=== PATIENT | male | born 1975 | race Caucasian/White ===

== ENCOUNTER 2019-05-10 11:51 | Emergency (ER) | payer OTHER, SELFPAY ==
--- NOTE | ~2019-05-10 | US_ITS ---
EXAMINATION: US soft tissue groin LT DATE: 05/10/2019 13:09 INDICATION: Left groin mass TECHNIQUE: Multiple grayscale and Doppler ultrasound images of the left groin were obtained. COMPARISON: None FINDINGS: There is an enlarged 2.5 x 2.3 x 1.4 cm left inguinal lymph node with asymmetric cortical thickening on the deep margin of the central fatty hilum. Appears to be increased vascularity extending to the h ilum. Along the hilar side of the lymph node is a less well-defined approximately 3.5 x 1.3 cm region more hypoechoic to the surrounding fat but with increased echogenicity relative to the lymph node. T here is a smaller normal appearing 1.4 x 1.1 x 0.7 cm left inguinal lymph node. IMPRESSION: 1. Enlarged 2.5 x 2.3 x 1.4 cm left inguinal lymph node with second more ill-defined adjacent hypoech oic region which is indeterminate, possibly a second enlarged lymph node. Differential includes react mya lymph node, supportive lymph node or lymph node metastasis. Could consider either clinical follow -up or ultrasound-guided biopsy depending on clinical history and level of clinical concern. Reviewed, dictated and finalized at location A. [employer] IMPRESSION: 1. Enlarged 2.5 x 2.3 x 1.4 cm left inguinal lymph node with second more ill-de fined adjacent hypoechoic region which is indeterminate, possibly a second enla rged lymph node. Differential includes reactive lymph node, supportive lymph no de or lymph node metastasis. Could consider either clinical follow-up or ultras ound-guided biopsy depending on clinical history and level of clinical concern.
--- NOTE | ~2019-05-10 | CT_ITS ---
EXAMINATION: CT chest abdomen pelvis w con DATE: 05/10/2019 14:48 [employer] INDICATION: Testicular mass. Rule out metastases. TECHNIQUE: Computed tomography (CT) of the chest, abdomen, and pelvis was performed with 100 cc Omnip aque 350 intravenous contrast. The dose-length product was 940.47 mGy-cm. Automated exposure control and iterative reconstruction technique were employed. COMPARISON: CT dated 03/10/2016 FINDINGS: CHEST CT: Calcified granulomas right upper lobe. There are is a 6 mm fissural nodule on the right, image 59. Th ere is right hilar lymphadenopathy measuring 13 mm short axis. Calcified right hilar lymph nodes cons istent with chronic granulomatous disease. No significant pleural or pericardial effusion. ABDOMEN/PELVIS CT: The liver, pancreas, adrenal glands are unremarkable. There are calcified granulomas of the spleen. T here are multiple bilateral renal cysts, largest in the left kidney measuring 2.5 cm. Gallbladder is present. Nonobstructive bowel gas pattern. There are multiple enlarged inguinal lymph nodes, largest in the right groin measuring 2.7 x 1.3 cm. There is complex phlegmonous change posterior to this lymp h node with infiltration of the surrounding fat, suspicious for infection. Cannot exclude developing abscess. Differential diagnosis includes hematoma. Status post cholecystectomy. Mildly enlarged prost ate gland. Mild thoracic spondylosis. No acute osseous abnormality. IMPRESSION: 1. Left inguinal lymphadenopathy with adjacent phlegmonous change, suspicious for infection/celluliti s. Cannot exclude developing abscess. Differential diagnosis includes hematoma if there is a history of trauma. 2: Mild right hilar lymphadenopathy, likely reactive. 3: 6 mm fissural nodule in the right, likely benign. Recommend follow-up low dose CT in 12 months. Reviewed, dictated and finalized at location B. [employer] IMPRESSION: 1. Left inguinal lymphadenopathy with adjacent phlegmonous change, suspicious f or infection/cellulitis. Cannot exclude developing abscess. Differential diagno sis includes hematoma if there is a history of trauma. 2: Mild right hilar lymphadenopathy, likely reactive. 3: 6 mm fissural nodule in the right, likely benign. Recommend follow-up low d ose CT in 12 months.
[2019-05-10 12:01] VITALS: BP 123/89; PULSE 115; RESP 18; TEMP 37.7; O2SAT 96
--- NOTE | 2019-05-10 12:26 | ED.WOUNDLAC ---
HPI - Wound/Laceration General Chief Complaint: Wound/Laceration Stated Complaint: testicular cyst Time Seen by Provider: 05/10/19 12:16 Source: patient Mode of arrival: ambulatory Limitations: no limitations History of Present Illness HPI narrative: Pt is a 44 y/o male who presents to the ED with c/o pain to his inner lt thigh that started 2.5 weeks ago. Pt states that he was at [facility] on Thursday (6 days ago) and was told that he had a cyst and needed to see a surgeon. He was supposed to see a surgeon today and his appointment got cancelled d/t his insurance. Pt has an appointment to see a surgeon in 2 days. He states that the pain has increased in the last 2 days and the size has doubled. Pt denies fever, penile pain, testicular pain, dysuria, or hematuria. He reports a tingling sensation after urinating and pain when walking. Onset (ago): week(s) (2.5) Extremity Location: Left: thigh Associated symptoms: pain Related Data Allergies Allergy/AdvReac Type Severity Reaction Status Date / Time aspirin Allergy Intermediate Seizure Verified 05/10/19 13:29 Review of Systems Review of Systems: Narrative: CONSTITUTIONAL: Denies fever. GENITOURINARY: Denies dysuria, hematuria, penile pain, testicular pain. Reports tingling after urinating. SKIN: Reports cyst to lt inner thigh MUSCULOSKELETAL: Reports pain to inner lt thigh. All systems reviewed & are unremarkable except as noted in HPI and below PMFSH Past Medical History Medical History (Updated 05/10/19 @ 16:26 by Christianne Sood MD) Anxiety Depression Diabetes mellitus History of blood transfusion HLD (hyperlipidemia) HTN (hypertension) Migraine MRSA (methicillin resistant staph aureus) culture positive Murmur MVP (mitral valve prolapse) Myocardial infarction Seizure Surgical History Surgical History (Updated 05/10/19 @ 13:34 by Monserrat Hoffman) History of arthroscopic knee surgery right History of surgery on arm bicep repair 2014 History of total right knee replacement Hx of appendectomy Social History Social History Smoking status: Heavy tobacco smoker Alcohol intake: never Gender identity (if verbalized by the patient): Male Exam Narrative: Exam Narrative: GENERAL: Well-appearing, well-nourished, and in no acute distress. HEAD: Normocephalic, atraumatic. EYES: PERRLA and EOMI. ENT: Nares clear, no rhinorrhea or epistaxis. Mucous membranes moist. NECK: Supple. CHEST: Clear to auscultation. No respiratory distress. HEART: Regular rate and rhythm. No murmur heard. Normal peripheral pulses. ABDOMEN: Soft, nontender, nondistended, normal active bowel sounds. EXTREMITIES: Normal range of motion. No edema. 4x5cm firm cyst lateral to lt inguinal fold with tenderness SKIN: Warm, dry, no rash. NEURO: No focal deficits. Alert and oriented X3. Course Course Emergency Course: Patient presented for evaluation of the left thigh mass which is tender and enlarging. At the time of initial assessment, the nodule is firm, tender, no erythema, no fluctuance. Patient with no leukocytosis. Elevation in inflammatory markers. No UTI. No abdominal pain or chest pain, however when results of ultrasound came back for lymphadenopathy, wanted to rule out any cancerous process, did coordinate the patient's care with Dr. Mart who is our on-call primary care provider today. He requested full imaging of this patient, which was performed in the ER and showed no acute abnormalities. There is possible early cellulitis and phlegmon, but no current abscess that is drainable. We will start the patient on oral antibiotics, he will have PCP follow-up within the week, also given follow-up with general surgery as needed if this should require drainage. Patient was advised to return should his symptoms change or worsen, he was then discharged home in stable condition. Vital Signs Vital signs: Vital Signs Tem
--- NOTE | 2019-05-10 12:47 | PC.NURSE ---
PT TAKEN TO ULTRASOUND AT THIS TIME, WILL MEDICATE PER PROVIDER ORDER UPON RETURN.
[2019-05-10 12:49] LABS: Basophils Absolute Auto 0.1 K/mm3 (0.0-0.1); Eosinophils Absolute Auto 0.1 K/mm3 (0-0.3); Eosinophils Percent Auto 1.3 % (0-4.4); Hematocrit 41.2 % (42.0-52.0); Hemoglobin 14.1 g/dL (14.0-18.0); Immature Granulocyte Absolute 0.03 K/mm3 (0.00-0.031); Immature Granulocyte Percent A 0.3 % (0-0.5); Lymphocytes Absolute Auto 1.97 K/mm3 (0.9-3.2); Lymphocytes Percent Auto 22.1 % (18.3-44.2); Mean Corpuscular HGB Conc 34.2 g/dl (32-36); Mean Corpuscular Hemoglobin 29.3 pg (26-34); Mean Corpuscular Volume 85.7 fl (80-100); Mean Platelet Volume 9.9 fl (7.4-10.4); Monocytes Absolute Auto 0.7 K/mm3 (0.1-0.6); Monocytes Percent Auto 7.7 % (2.6-8.5); Neutrophils Percent Auto 67.6 % (45.5-73.1); Platelet Count Result 199 k/mm3 (150-375); Red Blood Count 4.81 M/mm3 (4.6-6.20); Red Cell Distribution Width 12.8 % (11.5-14.5); White Blood Count 8.9 K/mm3 (4.5-10.0)
[2019-05-10 13:01] LABS: Blood Urea Nitrogen 14 mg/dL (9-20); Calcium 9.4 mg/dL (8.4-10.2); Carbon Dioxide 26 mmol/L (22-30); Chloride 98 mmol/L (98-107); Estimated CRCL calculation 156 ml/min; Estimated Glomerular Filt Rate > 60; Glucose 336 mg/dL (75-110); Potassium 4.1 mmol/L (3.4-5.0); Sodium 133 mmol/L (137-145)
[2019-05-10 13:30] VITALS: BP 118/76; PULSE 78; RESP 18; O2SAT 100
[2019-05-10 14:02] LABS: Add Urine Microscopic? YES; Appearance Urine Clear (Clear); Bilirubin Urine Negative (Negative); Blood Urine Negative (Negative); Color Urine Yellow (Yellow); Glucose Urine UA 3+ mg/dL (Negative); Ketones Urine Trace mg/dL (Negative); Leukocyte Esterase Ur Negative LEU/UL (Negative); Mucus Urine Heavy /lpf; Nitrate Urine Negative (Negative); Protein Urine Negative (Negative)
[2019-05-10 14:07] LABS: Specific Grav Ur 1.042 (1.001-1.035)
[2019-05-10 14:33] LABS: INR 0.9; Prothrombin Time 12.1 Seconds (11.1-14.7)
[2019-05-10 14:34] LABS: Partial Thromboplastin Time 26.8 SECONDS (22.3-36.8)
[2019-05-10 14:36] LABS: Alanine Aminotransferase 15 U/L (4-50); Albumin Level 3.9 g/dL (3.5-5.1); Alkaline Phosphatase 111 U/L (38-126); Aspartate Amino Transferase 14 U/L (17-59); Bilirubin,Total 0.7 mg/dL (0.2-1.3); CRP 3.1 mg/dL (<1.0); Lipase 34 U/L (23-300)
[2019-05-10 14:49] LABS: Erythrocyte Sedimentation Rate 90 mm/hr (0-20)
[2019-05-10 15:19] LABS: HIV 1/2 Ab P24 Ag Result Negative (Negative)
== END 2019-05-10 16:47 | disposition home or self-care (01) ==
PROVIDERS: Emergency Provider Emergency Medicine
DX: R59.9 Enlarged lymph nodes, unspecified (principal); E11.9 Type 2 diabetes mellitus without complications; E78.5 Hyperlipidemia, unspecified; I10 Essential (primary) hypertension; Z86.14 Personal history of Methicillin resistant Staphylococcus aureus infection; I34.1 Nonrheumatic mitral (valve) prolapse; I25.2 Old myocardial infarction; Z96.651 Presence of right artificial knee joint
CPT/HCPCS: 36415; 71260; 74177; 76882; 80048; 80076; 81001; 83690; 85025; 85610; 85652; 85730; 86140; 86703; 99284; A9270; G0432; Q9967

== ENCOUNTER 2019-05-12 17:03 | Inpatient (IN) | payer SELFPAY ==
--- NOTE | ~2019-05-12 | US_ITS ---
US soft tissue groin LT 05/14/2019 13:36 Indication: Abnormal mass identified in the left renal outline prior ultrasound. Procedure: High-resolution Limited ultrasound of the left inguinal region Comparison: CT dated 05/10/2019 and ultrasound dated 05/10/2019 Findings: There are multiple left inguinal lymph nodes, largest measuring 2.1 x 1.2 x 1.4 cm. There i s a slightly irregular shaped hypoechoic mass measuring 2.5 x 1 x 2.4 cm which is nonspecific. No katherine inable abscess is identified. The surrounding soft tissues are heterogeneous and ill-defined. No abno rmal vascularity is identified. Impression: 1: Irregular shaped hypoechoic mass in the left groin measuring 2.5 x 1 x 2.4 cm, decreased in size c ompared with prior examination. Differential diagnosis includes infectious/inflammatory allergies and hematoma. No drainable abscess identified. 2: Mild left inguinal adenopathy, likely reactive. Reviewed, dictated and finalized at location A. [employer] Impression: 1: Irregular shaped hypoechoic mass in the left groin measuring 2.5 x 1 x 2.4 c m, decreased in size compared with prior examination. Differential diagnosis in cludes infectious/inflammatory allergies and hematoma. No drainable abscess radha ntified. 2: Mild left inguinal adenopathy, likely reactive.
--- NOTE | ~2019-05-12 | XR_ITS ---
EXAMINATION: XR chest 2V EXAM DATE: 05/12/2019 18:00 INDICATION: Fever, nausea for 2 days. TECHNIQUE: Frontal and lateral projections of the chest obtained and reviewed. There is no prior shelley dy for comparison. FINDINGS: Right upper lobe granuloma. Symmetric nodular densities likely patient's nipples. The lung s are otherwise clear. There are no pleural effusions. The cardiomediastinal silhouette is within n ormal limits. There is no pneumothorax suspected. The bones and soft tissues are unremarkable. IMPRESSION: No acute cardiopulmonary findings. Reviewed, dictated and finalized at location A. [employer]
[2019-05-12 17:32] VITALS: BP 138/83; PULSE 102; RESP 19; TEMP 37.9; O2SAT 100
[2019-05-12 17:42] LABS: Basophils Absolute Auto 0.1 K/mm3 (0.0-0.1); Basophils Percent Auto 0.9 % (0.2-1.2); Eosinophils Absolute Auto 0.2 K/mm3 (0-0.3); Eosinophils Percent Auto 1.6 % (0-4.4); Hematocrit 40.9 % (42.0-52.0); Immature Granulocyte Absolute 0.03 K/mm3 (0.00-0.031); Immature Granulocyte Percent A 0.3 % (0-0.5); Lymphocytes Absolute Auto 2.05 K/mm3 (0.9-3.2); Lymphocytes Percent Auto 19.4 % (18.3-44.2); Mean Corpuscular HGB Conc 34.2 g/dl (32-36); Mean Corpuscular Hemoglobin 29.1 pg (26-34); Mean Platelet Volume 9.9 fl (7.4-10.4); Monocytes Absolute Auto 0.7 K/mm3 (0.1-0.6); Monocytes Percent Auto 6.7 % (2.6-8.5); Neutrophils Absolute Auto 7.5 K/mm3 (1.3-6.7); Neutrophils Percent Auto 71.1 % (45.5-73.1); Platelet Count Result 228 k/mm3 (150-375); Red Blood Count 4.81 M/mm3 (4.6-6.20); Red Cell Distribution Width 12.4 % (11.5-14.5); White Blood Count 10.6 K/mm3 (4.5-10.0)
[2019-05-12 17:53] LABS: Partial Thromboplastin Time 26.5 SECONDS (22.3-36.8); Prothrombin Time 12.4 Seconds (11.1-14.7)
[2019-05-12 17:54] LABS: Lactic Acid Reflex 1.7 mmol/L (0.7-2.1)
[2019-05-12 17:58] LABS: Alanine Aminotransferase 15 U/L (4-50); Alkaline Phosphatase 118 U/L (38-126); Aspartate Amino Transferase 14 U/L (17-59); Bilirubin,Total 0.4 mg/dL (0.2-1.3); Blood Urea Nitrogen 14 mg/dL (9-20); Calcium 9.2 mg/dL (8.4-10.2); Carbon Dioxide 28 mmol/L (22-30); Chloride 91 mmol/L (98-107); Estimated Glomerular Filt Rate > 60; Glucose 432 mg/dL (75-110); Lipase 29 U/L (23-300); Potassium 4.2 mmol/L (3.4-5.0); Sodium 131 mmol/L (137-145)
[2019-05-12 18:06] LABS: Troponin I < 0.012 ng/mL (0.000-0.034)
[2019-05-12 18:12] VITALS: BP 122/85; PULSE 93; RESP 18; O2SAT 96
[2019-05-12 19:08] LABS: Add Urine Microscopic? YES; Appearance Urine Clear (Clear); Bilirubin Urine Negative (Negative); Blood Urine 2+ (Negative); Color Urine Yellow (Yellow); Glucose Urine UA 3+ mg/dL (Negative); Ketones Urine Negative (Negative); Leukocyte Esterase Ur Negative LEU/UL (Negative); Mucus Urine Rare /lpf; Nitrate Urine Negative (Negative); Protein Urine Negative (Negative); RBC Urine 0-2 /hpf (0-2); Urobilinogen Urine Negative mg/dL (<2.0); WBC Urine 0-3 /hpf
[2019-05-12 19:09] LABS: Specific Grav Ur 1.038 (1.001-1.035)
--- NOTE | 2019-05-12 19:10 | ED.FEVER ---
HPI - Fever General Chief Complaint: Fever Stated Complaint: Infection L Upper Thigh Time Seen by Provider: 05/12/19 19:05 Related Data Allergies Allergy/AdvReac Type Severity Reaction Status Date / Time aspirin Allergy Intermediate Seizure Verified 05/10/19 13:29 [facility] Past Medical History Medical History (Updated 05/11/19 @ 00:00 by Val Solorio) Anxiety Depression Diabetes mellitus History of blood transfusion HLD (hyperlipidemia) HTN (hypertension) Migraine MRSA (methicillin resistant staph aureus) culture positive Murmur MVP (mitral valve prolapse) Myocardial infarction Seizure Surgical History Surgical History (Updated 05/10/19 @ 13:34 by Monserrat Hoffman) History of arthroscopic knee surgery right History of surgery on arm bicep repair 2013 History of total right knee replacement Hx of appendectomy Social History Social History Smoking status: Heavy tobacco smoker Alcohol intake: never Gender identity (if verbalized by the patient): Male Course Vital Signs Vital signs: Vital Signs Temperature 37.9 C H 05/12/19 17:32 Pulse Rate 102 H 05/12/19 17:32 Respiratory Rate 19 05/12/19 17:32 Blood Pressure 138/83 05/12/19 17:32 Pulse Oximetry 100 05/12/19 17:32 Temperature 37.9 C H 05/12/19 17:32 Pulse Rate 93 05/12/19 18:12 Respiratory Rate 18 05/12/19 18:12 Blood Pressure 122/85 05/12/19 18:12 Pulse Oximetry 96 05/12/19 18:12 MDM - Fever Lab Data Result diagrams: 05/12/19 17:36 05/12/19 17:36 Labs: Lab Results 05/12/19 05/12/19 05/12/19 Range/Units 17:36 17:36 17:36 WBC 10.6 H (4.5-10.0) K/mm3 RBC 4.81 (4.6-6.20) M/mm3 Hgb 14.0 (14.0-18.0) g/dL Hct 40.9 L (42.0-52.0) % MCV 85.0 (80-100) fl MCH 29.1 (26-34) pg MCHC 34.2 (32-36) g/dl RDW 12.4 (11.5-14.5) % Plt Count 228 (150-375) k/mm3 MPV 9.9 (7.4-10.4) fl Immature Gran % (Auto) 0.3 (0-0.5) % Neut % (Auto) 71.1 (45.5-73.1) % Lymph % (Auto) 19.4 (18.3-44.2) % [place] % (Auto) 6.7 (2.6-8.5) % Eos % (Auto) 1.6 (0-4.4) % Baso % (Auto) 0.9 (0.2-1.2) % Lymph # (Auto) 2.05 (0.9-3.2) K/mm3 [place] # (Auto) 0.7 H (0.1-0.6) K/mm3 Eos # (Auto) 0.2 (0-0.3) K/mm3 Baso # (Auto) 0.1 (0.0-0.1) K/mm3 Abs Immat Gran (auto) 0.03 (0.00-0.031) K/mm3 Absolute Neuts (auto) 7.5 H (1.3-6.7) K/mm3 Absolute Nucleated RBC 0.0 (0.0-0.012) K/mm3 Nucleated RBC % 0.0 (0.0-0.2) % PT 12.4 (11.1-14.7) Seconds INR 1.0 APTT 26.5 (22.3-36.8) SECONDS Sodium 131 L (137-145) mmol/L Potassium 4.2 (3.4-5.0) mmol/L Chloride 91 L (98-107) mmol/L Carbon Dioxide 28 (22-30) mmol/L BUN 14 (9-20) mg/dL Creatinine 0.70 (0.7-1.3) mg/dL Estim Creat Clear Calc Not Reportable Estimated GFR > 60 (59 - ) Glucose 432 H (75-110) mg/dL Lactic Acid (0.7-2.1) mmol/L Calcium 9.2 (8.4-10.2) mg/dL Total Bilirubin 0.4 (0.2-1.3) mg/dL AST 14 L (17-59) U/L ALT 15 (4-50) U/L Alkaline Phosphatase 118 (38-126) U/L Troponin I < 0.012 (0.000-0.034) ng/mL C-Reactive Protein 6.0 H (<1.0) mg/dL Total Protein 8.0 (6.3-8.2) g/dL Albumin 4.0 (3.5-5.1) g/dL Lipase 29 (23-300) U/L Urine Color (Yellow) Urine Appearance (Clear) Urine pH (5.0-9.0) Ur Specific [place] (1.001-1.035) Urine Protein (Negative) mg/dL Urine Glucose (UA) (Negative) mg/dL Urine Ketones (Negative) mg/dL Ur Blood (Man) (Negative) Urine Nitrate (Negative) Urine Bilirubin (Negative) Urine Urobilinogen (<2.0) mg/dL Leukocyte Esterase Rfl (Negative) ADALI/UL Urine RBC (0-2) /hpf Urine WBC /hpf Urine Mucus /lpf 05/12/19 05/12/19 Range/Units 17:36 18:55 WBC (4.5-10.0) K/mm3 RBC (4.6-6.20)
--- NOTE | 2019-05-12 19:12 | ED.SKABFB ---
HPI - Skin/Abscess/Foreign Bdy General Chief complaint: Fever Stated complaint: Infection L Upper Thigh Time Seen by Provider: 05/12/19 19:05 Source: patient and RN notes reviewed Mode of arrival: other Limitations: no limitations History of Present Illness HPI narrative: Pt is a 44 y/o male who presents to the ED with c/o an abscess on his left thigh that began 2.5 weeks ago. Pt was seen here at [facility] and was d/c home on Thursday (05/10/19) with lymph node infection. He was sent home with an abx and he notes that he has been taking his abx as prescribed. Pt was recommended to follow up with his PCP. Pt states that his sx are worsening. Pt reports the abscess on his thigh has become larger in size and more erythematous today. Pt has a hx of diabetes mellitus and he notes that he does not check his blood glucose levels regularly. Pt notes that he was recommended to come back to the ED if he became nauseated or had a fever. Pt reports nausea and a fever. MD complaint: abscess/boil Onset (ago): week(s) (2.5) Relieving factors: none Associated symptoms: fever and nausea Related Data Allergies Allergy/AdvReac Type Severity Reaction Status Date / Time aspirin Allergy Intermediate Seizure Verified 05/12/19 21:49 Review of Systems Review of Systems: All systems reviewed & are unremarkable except as noted in HPI and below Constitutional: Constitutional: Reports fever(s) Gastrointestinal: Gastrointestinal: Reports nausea Integumentary/Breasts: Skin/Breast: Reports other (abscess on left thigh with erythema and has grown in size) [facility] Past Medical History Medical History (Updated 05/12/19 @ 23:47 by Rob Macdonald MD) Anxiety Depression Diabetes mellitus History of blood transfusion HLD (hyperlipidemia) HTN (hypertension) Migraine MRSA (methicillin resistant staph aureus) culture positive Murmur MVP (mitral valve prolapse) Myocardial infarction Seizure Surgical History Surgical History (Updated 05/10/19 @ 13:34 by Monserrat Hoffman) History of arthroscopic knee surgery right History of surgery on arm bicep repair 2013 History of total right knee replacement Hx of appendectomy Family History Family History (Updated 05/12/19 @ 23:20 by Lara Knapp RN) Mother Acute myocardial infarction Father Cancer Grandparent Diabetes mellitus Hypertension Social History Social History (Updated 05/12/19 @ 19:59 by Mary Ellen Jim) Smoking packs per day: 1 Smoking cigarettes per day: 20.0 Years smoked: 30 Smoking pack-years: 30.00 Smoking status: Current every day smoker Tobacco type: cigarettes Additional smoking assessment comments: quit a few times for years at a time, only smoked 3-5 cigarettes for years Alcohol intake: never Substance use: never Substance use type: does not use Gender identity (if verbalized by the patient): Male Spiritual care concerns: No Agree to blood products: Yes Exam Const: General: no acute distress and alert Nutritional Appearance: well nourished Orientation/consciousness: patient oriented x3 HENMT: Head: normal to inspection Resp: Effort & Inspection: normal respiratory effort Auscultation: clear to auscultation bilaterally Cardio: Rate: regular rate Rhythm: regular rhythm Skin: Other: erythema, induration, and Course Consultations Consultation #1: Discussed case with Dr. Echevarria (Hospitalist). Accepts admission. Date: 05/12/19 Time: 21:22 Consultation #2: Discussed case with Dr. Vyas (General Surgery). Accepts consult. Date: 05/12/19 Time: 21:46 Vital Signs Vital signs: Vital Signs Temperature 37.9 C H 05/12/19 17:32 Pulse Rate 102 H 05/12/19 17:32 Respiratory Rate 19 05/12/19 17:32 Blood Pressure 138/83 05/12/19 17:32 Pulse Oximetry 100 05/12/19 17:32 Temperature 36.9 C 05/12/19 22:58 Pulse Rate 79 05/12/19 22:58 Respiratory Rate 14 05/12/19 22:58 Blood Pressure 125/78 05/12/19 22:58 Pulse
[2019-05-12] MEDS: SODIUM CHLORIDE 0.9% IV 1,000 ML 999 ML IV CONT (19:28)
[2019-05-12] MEDS: ONDANSETRON INJ 4 MG/2 ML VIAL IV PUSH (19:28)
[2019-05-12 20:27] VITALS: BP 142/88; PULSE 98; RESP 18; O2SAT 97
[2019-05-12] MEDS: INSULIN HUMAN REGULAR (*BKC) 100 UNITS/ML 10 UNITS IV PUSH (20:32)
[2019-05-12 20:39] LABS: Glucose Point of Care 308 (65-105)
[2019-05-12 22:33] VITALS: BP 152/88; PULSE 92; RESP 16; O2SAT 98
[2019-05-12 22:58] VITALS: BP 125/78; PULSE 79; RESP 14; TEMP 36.9; O2SAT 100
[2019-05-12] MEDS: LACTATED RINGERS 1,000 ML 125 ML IV CONT (22:58)
[2019-05-12 22:59] VITALS: BMI 27.0
[2019-05-12 23:49] LABS: Glucose Point of Care 311 (65-105)
[2019-05-13] MEDS: INSULIN ASPART (*BKC) 100 UNITS/ML 10 UNITS SUB-Q (00:12)
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
[2019-05-13] MEDS: SODIUM CHLORIDE 0.9% IV 1,000 ML 150 ML IV CONT ×3 (01:40→17:03)
--- NOTE | 2019-05-13 02:25 | PC.NURSE ---
This patient, Bakari Amezquita, was admitted to Medical Room 349-01. Patient/family oriented to hospital policies and general routines including ID bracelet, bed and alarms, visiting hours, pain management, procedures, bathroom and other care routines, personal items, smoking policy, room service/diet, and visiting hours. Valuables list has been completed. Information on how to activate the Rapid Response Team has been discussed. Patient/Family are encouraged to report perceived risks to care and to ask questions if they do not understand what they are told or what they should do.
[2019-05-13 05:55] VITALS: BP 117/66; PULSE 86; RESP 16; TEMP 37.4; O2SAT 96
[2019-05-13 06:06] LABS: Basophils Absolute Auto 0.1 K/mm3 (0.0-0.1); Basophils Percent Auto 0.7 % (0.2-1.2); Blood Urea Nitrogen 13 mg/dL (9-20); Calcium 8.5 mg/dL (8.4-10.2); Carbon Dioxide 28 mmol/L (22-30); Chloride 98 mmol/L (98-107); Eosinophils Absolute Auto 0.2 K/mm3 (0-0.3); Eosinophils Percent Auto 2.1 % (0-4.4); Estimated CRCL calculation 156 ml/min; Estimated Glomerular Filt Rate > 60; Glucose 303 mg/dL (75-110); Hematocrit 37.1 % (42.0-52.0); Hemoglobin 12.6 g/dL (14.0-18.0); Immature Granulocyte Absolute 0.03 K/mm3 (0.00-0.031); Immature Granulocyte Percent A 0.3 % (0-0.5); Lymphocytes Absolute Auto 1.51 K/mm3 (0.9-3.2); Lymphocytes Percent Auto 15.8 % (18.3-44.2); Mean Corpuscular Hemoglobin 28.8 pg (26-34); Mean Corpuscular Volume 84.9 fl (80-100); Mean Platelet Volume 10.1 fl (7.4-10.4); Monocytes Absolute Auto 0.8 K/mm3 (0.1-0.6); Monocytes Percent Auto 8.3 % (2.6-8.5); Neutrophils Absolute Auto 6.9 K/mm3 (1.3-6.7); Neutrophils Percent Auto 72.8 % (45.5-73.1); Platelet Count Result 206 k/mm3 (150-375); Potassium 3.9 mmol/L (3.4-5.0); Red Blood Count 4.37 M/mm3 (4.6-6.20); Red Cell Distribution Width 12.4 % (11.5-14.5); Sodium 132 mmol/L (137-145); White Blood Count 9.5 K/mm3 (4.5-10.0)
[2019-05-13 06:26] LABS: Hemoglobin A1C 12.3 % (<5.7)
[2019-05-13 07:39] LABS: Glucose Point of Care 306 (65-105)
[2019-05-13] MEDS: INSULIN ASPART (*BKC) 100 UNITS/ML SUB-Q ×3 (07:39→17:08)
[2019-05-13] MEDS: metFORMIN HCL 500 MG TABLET 1000 MG PO ×2 (07:40→17:04)
[2019-05-13 11:48] LABS: Glucose Point of Care 250 (65-105)
[2019-05-13 14:00] VITALS: BP 114/59; PULSE 82; RESP 18; TEMP 36.7; O2SAT 91
--- NOTE | 2019-05-13 15:48 | PM.IMPN ---
Progress Note: A&P Assessment and Plan (1) Abscess or cellulitis of thigh: Status: Acute Assessment and Plan: Day 2 Vanc/Primaxin (2) Uncontrolled diabetes mellitus: Qualifiers: Diabetes mellitus type: type 2 Glycemic state: with hyperglycemia Qualified Code(s): E11.65 - Type 2 diabetes mellitus with hyperglycemia Code(s): E11.65 - Type 2 diabetes mellitus with hyperglycemia Status: Acute Assessment and Plan: 05/12 Added basal Lantus 0.25mg/kg/day Continue SSI Subjective Date/time seen: 05/13/19 15:48 Interval history: Admitted 05/11 with cellulitis of thigh. Less pain and swelling today. Denied other pain. No sob. No gi/gu c/o. no bleeding. Review of Systems Review of Systems: All systems reviewed & are unremarkable except as noted in HPI and below Exam Narrative: Exam Narrative: HEENT: EOMI, PERRL, sclerae nonicteric, pharyngeal mucosa pink and intact NECK: No JVD CHEST: Clear to auscultation. Normal effort. HEART: NL S1/S2, regular, no murmur ABDOMEN: BS+, soft, nontender, no mass, no bruits EXTREMITIES: No cyanosis, edema. LEFT GROIN WITH FIRM, TENDER, ERYTHEMATOUS NODULE WITH INCISIONS NOTED NEUROLOGIC: CN intact and symmetric to inspection. MUSCULOSKELETAL: Tone and strength symmetric. PSYCH: Alert. Oriented to person, place, and time. Objective Data Vital Signs Vital Signs: Vital Signs - 24 hr 05/12/19 17:32 05/12/19 18:12 05/12/19 20:27 Temperature 100.2 F H Pulse Rate 102 H 93 98 Respiratory Rate 19 18 18 Blood Pressure 138/83 122/85 142/88 H Pulse Oximetry 100 96 97 05/12/19 22:33 05/12/19 22:58 05/13/19 05:55 Temperature 98.4 F 99.3 F Pulse Rate 92 79 86 Respiratory Rate 16 14 16 Blood Pressure 152/88 H 125/78 117/66 Pulse Oximetry 98 100 96 05/13/19 14:00 Temperature 98.1 F Pulse Rate 82 Respiratory Rate 18 Blood Pressure 114/59 L Pulse Oximetry 91 Intake/Output Intake/Output: Intake & Output 05/10/19 05/11/19 05/12/19 05/13/19 23:59 23:59 23:59 23:59 Intake Total 1700 0731 Output Total 2024 Balance 1700 917 Meds/Results Medications: Active Medications Generic Name Dose Route Start Last Admin Trade Name Freq PRN Reason Stop Dose Admin Acetaminophen 650 mg 05/13/19 01:18 Tylenol Tablet PO Q6H PRN Mild Pain (1-3) or Fever Dextrose 12.5 gm 05/13/19 01:14 Dextrose 50% Syringe IV PUSH PRN PRN Hypoglycemia Protocol Glucagon 1 mg 05/13/19 01:14 Glucagon For Inj IM PRN PRN Hypoglycemia Protocol Glucose 15 gm 05/13/19 01:14 Glutose 15 PO PRN PRN Hypoglycemia Protocol Imipenem/Cilastatin Sodium 500 mg in 100 mls @ 300 mls/hr 05/13/19 01:00 05/13/19 12:10 Primaxin 500 Mg/D5w 100 Ml IVPB Infused Q6HR YOSEF Infusion Vancomycin HCl 1,750 mg in 500 mls @ 250 mls/hr 05/13/19 09:00 05/13/19 10:26 Vancomycin 1,750 Mg/D5w 500 Ml IVPB Infused Q12H YOSEF Infusion Dextrose 1,000 mls @ 100 mls/hr 05/13/19 01:14 Dextrose 5% 1,000 Ml IVPB PRN PRN Hypoglycemia Protocol Sodium Chloride 1,000 mls @ 150 mls/hr 05/13/19 01:20 05/13/19 12:10 Normal Saline Iv IV CONT 150 mls/hr .Q6H40M YOSEF Infusion Insulin Aspart 3 - 6 units 05/13/19 08:00 05/13/19 11:51 Novolog SUB-Q 3 units TIDWM YOSEF Administration Protocol Insulin Glargine 25 units 05/13/19 21:00 Lantus 0.25 units/kg (25 units) SUB-Q HS YOSEF Metformin HCl 1,000 mg 05/13/19 08:00 05/13/19 07:40 Glucophage PO 1,000 mg BIDWM YOSEF Administration Oxycodone/Acetaminophen 1 tablet 05/13/19 01:16 05/13/19 05:50 Percocet 5-325 Mg PO 1 tablet Q6H PRN Administration pain 4-10 Radiology Results: ITS Impressions Chest X-Ray 05/12/19 18:03 IMPRESSION: No acute cardiopulmonary findings. Labs Labs: Laboratory Results - last 24 hr 05/12/19 05/12/19 05/12/19 17:36 17:36 17:36
--- NOTE | 2019-05-13 16:22 | PM.CNGS ---
Assessment and Plan Assessment and plan (1) Abscess or cellulitis of thigh: Status: Acute Assessment and Plan: I have reviewed the CT and ultrasound as well as the previous ER records. Patient has evidence of cellulitis overlying the left inner thigh region, but there is no definite fluctuance to suggest development of an abscess yet. The marker from the previous outline of erythema appears to show signs of improvement. His white blood count has also improved and he is afebrile. Will continue to monitor patient on IV antibiotics at this time. If this eventually develops into an abscess, then could perform bedside incision and drainage or consider OR incision and drainage under IV sedation. Better control of blood sugars will be of importance to prevent any for future infections and this was discussed in detail with the patient. Will continue to follow patient closely. (2) Lymphadenitis, acute: Code(s): L04.9 - Acute lymphadenitis, unspecified Status: Acute Assessment and Plan: Lymphadenopathy likely due to overlying infection. He does not report any recent animal bites or other wounds to his lower extremities that would have resulted in infection. If lymphadenopathy does not resolve with infection, he may eventually require biopsy. This will be deferred until later after completing antibiotic course. (3) Uncontrolled diabetes mellitus: Qualifiers: Diabetes mellitus type: type 2 Glycemic state: with hyperglycemia Qualified Code(s): E11.65 - Type 2 diabetes mellitus with hyperglycemia Code(s): E11.65 - Type 2 diabetes mellitus with hyperglycemia Status: Acute History of Present Illness Consult details Consult date: 05/13/19 Narrative: This is a 44-year-old man who presented to the emergency department last night with worsening left inner thigh swelling and pain. This has been ongoing for about 2 and half weeks. He originally went to the emergency department in [place] and was referred to a surgeon up there. The surgeon up there did not take his insurance, therefore on 05/09 he presented to the emergency department here at [place]. He underwent an ultrasound over the area of swelling as well as a CT chest abdomen and pelvis. This showed lymphadenopathy possibly related to infection or cellulitis, but no definite abscess. He then began experiencing fevers and nausea and vomiting over the past 2 days and presented back to the emergency department last night. He was then admitted to be placed on IV antibiotics and for further treatment. He denies any traumatic injury to the area, any open sores on the leg, or any other inciting incident. He states this started out as a small nodule that was slightly tender and continued to enlarge from there. He is a diabetic and has been off who the his meds for at least 6 months. He is poorly controlled and has not followed up with a primary care physician. Review of Systems Review of Systems: All systems reviewed & are unremarkable except as noted in HPI and below Eyes: Eyes: Denies change in vision ENT: Denies hearing loss, Denies neck pain and Denies sore throat Cardiovascular: Cardiovascular: Denies chest pain and Denies dyspnea Respiratory: Respiratory: Denies cough, Denies dyspnea and Denies wheezing Gastrointestinal: Gastrointestinal: Denies abdominal pain, Reports constipation, Reports nausea and Reports vomiting Genitourinary: Genitourinary: Denies hematuria and Denies dysuria Musculoskeletal: Musculoskeletal: Denies arthralgias, Denies joint swelling and Denies neck pain Integumentary/Breasts: Skin/Breast: Reports as per HPI and Reports erythema Allergic/Immunologic: Allergic/Immunologic: Denies wheezing [facility] Past Medical History Medical History Anxiety Chronic constipation Depression Diabetes mellitus History of blood transfusion HLD (hyperlipidemia) HTN (hyp
[2019-05-13 17:06] LABS: Glucose Point of Care 248 (65-105)
[2019-05-13 22:00] VITALS: BP 109/57; PULSE 77; RESP 18; TEMP 37.2; O2SAT 96
[2019-05-13] MEDS: INSULIN GLARGINE (*BKC) 100 UNITS/ML 25 UNITS SUB-Q (22:14)
[2019-05-13 22:57] LABS: Glucose Point of Care 270 (65-105)
[2019-05-14] MEDS: SODIUM CHLORIDE 0.9% IV 1,000 ML 150 ML IV CONT (00:58)
[2019-05-14 06:00] VITALS: BP 106/60; PULSE 84; RESP 16; TEMP 37.1; O2SAT 97
[2019-05-14 07:08] LABS: Glucose Point of Care 241 (65-105)
[2019-05-14] MEDS: INSULIN ASPART (*BKC) 100 UNITS/ML SUB-Q ×5 (07:35→17:39)
[2019-05-14] MEDS: metFORMIN HCL 500 MG TABLET 1000 MG PO ×2 (08:57→16:53)
[2019-05-14] MEDS: ENOXAPARIN 40 MG/0.4 ML SYRINGE SUB-Q (08:57)
[2019-05-14 09:12] LABS: Hematocrit 38.1 % (42.0-52.0); Mean Corpuscular HGB Conc 34.1 g/dl (32-36); Mean Corpuscular Hemoglobin 29.1 pg (26-34); Mean Corpuscular Volume 85.4 fl (80-100); Mean Platelet Volume 9.7 fl (7.4-10.4); Platelet Count Result 203 k/mm3 (150-375); Red Blood Count 4.46 M/mm3 (4.6-6.20); Red Cell Distribution Width 12.4 % (11.5-14.5); White Blood Count 7.7 K/mm3 (4.5-10.0)
[2019-05-14 09:27] LABS: CRP 4.3 mg/dL (<1.0)
[2019-05-14 09:28] LABS: Blood Urea Nitrogen 12 mg/dL (9-20); Calcium 8.6 mg/dL (8.4-10.2); Carbon Dioxide 28 mmol/L (22-30); Chloride 99 mmol/L (98-107); Estimated CRCL calculation 156 ml/min; Estimated Glomerular Filt Rate > 60; Glucose 294 mg/dL (75-110); Potassium 3.9 mmol/L (3.4-5.0); Sodium 132 mmol/L (137-145)
[2019-05-14 09:40] LABS: Vancomycin Trough 5.1 ug/mL (10.0-20.0)
--- NOTE | 2019-05-14 12:17 | PM.IMPN ---
Progress Note: A&P Assessment and Plan (1) Abscess or cellulitis of thigh: Status: Acute Assessment and Plan: Day 3 Vanc/Primaxin 05/13 Add scheduled naproxen for pain (2) Uncontrolled diabetes mellitus: Qualifiers: Diabetes mellitus type: type 2 Glycemic state: with hyperglycemia Qualified Code(s): E11.65 - Type 2 diabetes mellitus with hyperglycemia Code(s): E11.65 - Type 2 diabetes mellitus with hyperglycemia Status: Acute Assessment and Plan: 05/12 Added basal Lantus 0.25mg/kg/day 05/13 add premeal insulin Continue SSI Subjective Date/time seen: 05/14/19 12:17 Interval history: Admitted 05/11 with cellulitis of thigh. Percocet takes the edge off groin pain, but it is still moderate. Denied other pain. No sob. No gi/gu c/o. no bleeding. Review of Systems Review of Systems: All systems reviewed & are unremarkable except as noted in HPI and below Exam Narrative: Exam Narrative: HEENT: EOMI, PERRL, sclerae nonicteric, pharyngeal mucosa pink and intact NECK: No JVD CHEST: Clear to auscultation. Normal effort. HEART: NL S1/S2, regular, no murmur ABDOMEN: BS+, soft, nontender, no mass, no bruits EXTREMITIES: No cyanosis, edema. LEFT GROIN WITH FIRM, TENDER, ERYTHEMATOUS NODULE WITH INCISIONS NOTED NEUROLOGIC: CN intact and symmetric to inspection. MUSCULOSKELETAL: Tone and strength symmetric. PSYCH: Alert. Oriented to person, place, and time. Objective Data Vital Signs Vital Signs: Vital Signs - 24 hr 05/13/19 14:00 05/13/19 22:00 05/14/19 06:00 Temperature 98.1 F 98.9 F 98.8 F Pulse Rate 82 77 84 Respiratory Rate 18 18 16 Blood Pressure 114/59 L 109/57 L 106/60 Pulse Oximetry 91 96 97 Intake/Output Intake/Output: Intake & Output 05/11/19 05/12/19 05/13/19 05/14/19 23:59 23:59 23:59 23:59 Intake Total 1700 5642 2280 Output Total 2024 1625 Balance 1700 8193 655 Meds/Results Medications: Active Medications Generic Name Dose Route Start Last Admin Trade Name Freq PRN Reason Stop Dose Admin Acetaminophen 650 mg 05/13/19 01:18 Tylenol Tablet PO Q6H PRN Mild Pain (1-3) or Fever Dextrose 12.5 gm 05/13/19 01:14 Dextrose 50% Syringe IV PUSH PRN PRN Hypoglycemia Protocol Enoxaparin Sodium 40 mg 05/14/19 09:00 05/14/19 08:57 Lovenox SUB-Q 40 mg DAILY YOSEF Administration Glucagon 1 mg 05/13/19 01:14 Glucagon For Inj IM PRN PRN Hypoglycemia Protocol Glucose 15 gm 05/13/19 01:14 Glutose 15 PO PRN PRN Hypoglycemia Protocol Imipenem/Cilastatin Sodium 500 mg in 100 mls @ 300 mls/hr 05/13/19 01:00 05/14/19 06:45 Primaxin 500 Mg/D5w 100 Ml IVPB Infused Q6HR YOSEF Infusion Dextrose 1,000 mls @ 100 mls/hr 05/13/19 01:14 Dextrose 5% 1,000 Ml IVPB PRN PRN Hypoglycemia Protocol Vancomycin HCl 1,500 mg in 500 mls @ 333.333 mls/hr 05/14/19 10:00 05/14/19 10:25 Vancomycin 1,500 Mg/D5w 500 Ml IVPB 333.3 mls/hr Q8H YOSEF Administration Insulin Aspart 3 - 6 units 05/13/19 08:00 05/14/19 07:35 Novolog SUB-Q 3 units TIDWM YOSEF Administration Protocol Insulin Glargine 25 units 05/13/19 21:00 05/13/19 22:14 Lantus 0.25 units/kg (25 units) 25 units SUB-Q Administration [facility] Metformin HCl 1,000 mg 05/13/19 08:00 05/14/19 08:57 Glucophage PO 1,000 mg BIDWM YOSEF Administration Oxycodone/Acetaminophen 1 tablet 05/13/19 01:16 05/13/19 22:13 Percocet 5-325 Mg PO 1 tablet Q6H PRN Administration pain 4-10 Radiology Results: ITS Impressions Chest X-Ray 05/12/19 18:03 IMPRESSION: No acute cardiopulmonary findings. Labs Labs: Laboratory Results - last 24 hr 05/13/19 05/13/19 05/14/19 17:03 22:16 07:06 WBC RBC Hgb Hct MCV MCH MCHC RDW Plt Count MPV Sodium Potassium Chloride Carbon Dioxide BUN Creatinine
[2019-05-14 12:27] LABS: Glucose Point of Care 244 (65-105)
[2019-05-14] MEDS: NAPROXEN 500 MG TABLET PO ×2 (12:33→16:53)
--- NOTE | 2019-05-14 13:52 | PM.PNGS ---
Progress Note: A&P Assessment and Plan (1) Lymphadenitis, acute: Code(s): L04.9 - Acute lymphadenitis, unspecified Status: Acute (2) Abscess or cellulitis of thigh: Status: Acute Assessment and Plan: Still pretty swollen. If there is an abscess at must be quite deep as there is no fluctuance. Will repeat an ultrasound today as his last ultrasound was 4 days ago. (3) Uncontrolled diabetes mellitus: Qualifiers: Diabetes mellitus type: type 2 Glycemic state: with hyperglycemia Qualified Code(s): E11.65 - Type 2 diabetes mellitus with hyperglycemia Code(s): E11.65 - Type 2 diabetes mellitus with hyperglycemia Status: Acute Assessment and Plan: Improving, blood sugar on morning labs was 294. Fingerstick at 12:30 p.m. was 244. Subjective Subjective Date/Time Seen: 05/14/19 13:52 Left groin does not feel any better. Still has headache. He is eating well and fevers have gone. Per the patient, he is really no better than when he came in. Review of Systems Review of Systems: All systems reviewed & are unremarkable except as noted in HPI and below ( HPI) Constitutional: Constitutional: Denies chills, Denies fever(s) and Reports headache(s) Exam Skin: General skin exam: erythema ( And swelling left groin, tender but no fluctuance.) Objective Data Vital Signs Vital Signs: Vital Signs - 24 hr 05/13/19 14:00 05/13/19 22:00 05/14/19 06:00 Temperature 36.7 C 37.2 C 37.1 C Pulse Rate 82 77 84 Respiratory Rate 18 18 16 Blood Pressure 114/59 L 109/57 L 106/60 Pulse Oximetry 91 96 97 Intake/Output Intake/Output: Intake & Output 05/11/19 05/12/19 05/13/19 05/14/19 23:59 23:59 23:59 23:59 Intake Total 1700 5642 2780 Output Total 2024 162 Balance 1700 3550 1155 Meds/Results Medications: Active Medications Generic Name Dose Route Start Last Admin Trade Name Freq PRN Reason Stop Dose Admin Acetaminophen 1,000 mg 05/14/19 13:02 Tylenol Tablet PO Q6H PRN LAFLEUR, Mild pain(1-3), fever Dextrose 12.5 gm 05/13/19 01:14 Dextrose 50% Syringe IV PUSH PRN PRN Hypoglycemia Protocol Enoxaparin Sodium 40 mg 05/14/19 09:00 05/14/19 08:57 Lovenox SUB-Q 40 mg DAILY YOSEF Administration Glucagon 1 mg 05/13/19 01:14 Glucagon For Inj IM PRN PRN Hypoglycemia Protocol Glucose 15 gm 05/13/19 01:14 Glutose 15 PO PRN PRN Hypoglycemia Protocol Imipenem/Cilastatin Sodium 500 mg in 100 mls @ 300 mls/hr 05/13/19 01:00 05/14/19 12:44 Primaxin 500 Mg/D5w 100 Ml IVPB 300 mls/hr Q6HR YOSEF Administration Dextrose 1,000 mls @ 100 mls/hr 05/13/19 01:14 Dextrose 5% 1,000 Ml IVPB PRN PRN Hypoglycemia Protocol Vancomycin HCl 1,500 mg in 500 mls @ 333.333 mls/hr 05/14/19 10:00 05/14/19 12:44 Vancomycin 1,500 Mg/D5w 500 Ml IVPB Infused Q8H YOSEF Infusion Insulin Aspart 3 - 6 units 05/13/19 08:00 05/14/19 12:33 Novolog SUB-Q 3 units TIDWM YOSEF Administration Protocol Insulin Aspart 5 units 05/14/19 12:00 05/14/19 12:33 Novolog 0.05 units/kg (5 units) 5 units SUB-Q Administration TIDWM YOSEF Insulin Glargine 25 units 05/13/19 21:00 05/13/19 22:14 Lantus 0.25 units/kg (25 units) 25 units SUB-Q Administration [facility] Metformin HCl 1,000 mg 05/13/19 08:00 05/14/19 08:57 Glucophage PO 1,000 mg BIDWM YOSEF Administration Naproxen 500 mg 05/14/19 12:30 05/14/19 12:33 Naproxen PO 500 mg BIDWM YOSEF Administration Oxycodone/Acetaminophen 1 tablet 05/13/19 01:16 05/13/19 22:13 Percocet 5-325 Mg PO 1 tablet Q6H PRN Administration pain 4-10 Radiology Results: ITS Impressions Chest X-Ray 05/12/19 18:03 IMPRESSION: No acute cardiopulmonary findings. Labs Labs: Laboratory Results - last 24 hr 05/13/19 05/13/19 05/14/19 17:03 22:16 07:06 WBC RBC Hg
[2019-05-14 14:00] VITALS: BP 132/68; PULSE 83; RESP 18; TEMP 37.4; O2SAT 97
[2019-05-14 18:04] LABS: Glucose Point of Care 214 (65-105)
[2019-05-14 20:00] VITALS: PULSE 72; RESP 18; O2SAT 98
[2019-05-14 22:00] VITALS: BP 119/60; PULSE 72; RESP 18; TEMP 36.6; O2SAT 98
[2019-05-14] MEDS: INSULIN GLARGINE (*BKC) 100 UNITS/ML 25 UNITS SUB-Q (22:08)
[2019-05-14 23:51] LABS: Glucose Point of Care 217 (65-105)
--- NOTE | 2019-05-15 03:14 | PC.NURSE ---
Daylight Savings Time For Daylight Savings Time Ending in the Fall - Clocks are moved back. For Daylight Savings Time Beginning in the Spring - Clocks are moved ahead. For [facility], the time of change occurs at 0200 hrs. Time is taken from the crm technical lead. This entry on the patient's chart recognizes the change in time reflected during documentation. Example: 2 entries for vital signs may be charted for 0200 hrs.
[2019-05-15 06:00] VITALS: BP 125/73; PULSE 72; RESP 16; TEMP 36.3; O2SAT 98
[2019-05-15] MEDS: metFORMIN HCL 500 MG TABLET 1000 MG PO (07:58)
[2019-05-15] MEDS: INSULIN ASPART (*BKC) 100 UNITS/ML SUB-Q ×2 (07:58→13:24)
[2019-05-15] MEDS: ENOXAPARIN 40 MG/0.4 ML SYRINGE SUB-Q (07:59)
[2019-05-15] MEDS: NAPROXEN 500 MG TABLET PO (07:59)
[2019-05-15 08:52] LABS: Glucose Point of Care 188 (65-105)
[2019-05-15 09:14] LABS: Hematocrit 37.5 % (42.0-52.0); Hemoglobin 12.6 g/dL (14.0-18.0); Mean Corpuscular HGB Conc 33.6 g/dl (32-36); Mean Corpuscular Volume 86.4 fl (80-100); Mean Platelet Volume 9.5 fl (7.4-10.4); Platelet Count Result 200 k/mm3 (150-375); Red Blood Count 4.34 M/mm3 (4.6-6.20); Red Cell Distribution Width 12.5 % (11.5-14.5); White Blood Count 5.8 K/mm3 (4.5-10.0)
[2019-05-15 09:23] LABS: Blood Urea Nitrogen 12 mg/dL (9-20); Calcium 8.8 mg/dL (8.4-10.2); Carbon Dioxide 29 mmol/L (22-30); Chloride 102 mmol/L (98-107); Estimated CRCL calculation 156 ml/min; Estimated Glomerular Filt Rate > 60; Glucose 226 mg/dL (75-110); Potassium 3.9 mmol/L (3.4-5.0); Sodium 135 mmol/L (137-145)
[2019-05-15 09:48] LABS: Vancomycin Trough 12.2 ug/mL (10.0-20.0)
--- NOTE | 2019-05-15 11:31 | PM.DS ---
DS: Diagnosis Admitting Diagnosis Admitting Diagnosis: Type 2 diabetes mellitus with hyperglycemia Discharge Diagnosis (1) Abscess or cellulitis of thigh: Status: Acute Assessment and Plan: Day 4 Vanc/Primaxin 05/13 Add scheduled naproxen for pain 05/14 home on PO antibiotics to f/u as outpatient with Dr. Ferrari and Dr. Mart (2) Uncontrolled diabetes mellitus: Qualifiers: Diabetes mellitus type: type 2 Glycemic state: with hyperglycemia Qualified Code(s): E11.65 - Type 2 diabetes mellitus with hyperglycemia Code(s): E11.65 - Type 2 diabetes mellitus with hyperglycemia Status: Acute Assessment and Plan: 05/12 Added basal Lantus 0.25mg/kg/day 05/13 add premeal insulin Continue SSI DS: Summary Hospital Course Reason for hospitalization: Painful swelling left groin Hospital Course: Admitted with fever painful swelling left groin. Ultrasound showed no abscess. Repeat ultrasound feels the same. Gradually improved on IV vancomycin Primaxin. Flexion was 336 admission improved 188 per day of discharge. Still has significant swelling and tenderness with feeding erythema left thigh. Was discharged home on oral Bactrim ds clindamycin for outpatient follow-up. He previously failed doxycycline and metronidazole as an outpatient. Status at Discharge Functional status at discharge: independent ambulation Overall status at discharge: patient is progressing back to baseline Time Spent with Patient Time attestation: Total time spent providing and/or coordinating discharge services: 33 minutes Exam Narrative: Exam Narrative: HEENT: EOMI, PERRL, sclerae nonicteric, pharyngeal mucosa pink and intact NECK: No JVD CHEST: Clear to auscultation. Normal effort. HEART: NL S1/S2, regular, no murmur ABDOMEN: BS+, soft, nontender, no mass, no bruits EXTREMITIES: No cyanosis, edema. LEFT GROIN WITH FIRM, TENDER, ERYTHEMATOUS NODULE WITH INCISIONS NOTED NEUROLOGIC: CN intact and symmetric to inspection. MUSCULOSKELETAL: Tone and strength symmetric. PSYCH: Alert. Oriented to person, place, and time. DS: Data Data Completed and Pending Labs on day of discharge: Labs from last 24 hours 05/15/19 05/15/19 05/15/19 09:07 09:07 09:07 WBC 5.8 RBC 4.34 L Hgb 12.6 L Hct 37.5 L MCV 86.4 MCH 29.0 MCHC 33.6 RDW 12.5 Plt Count 200 MPV 9.5 Sodium 135 L Potassium 3.9 Chloride 102 Carbon Dioxide 29 BUN 12 Creatinine 0.60 L Estim Creat Clear Calc 156 Estimated GFR > 60 Glucose 226 H POC Capillary Glucose Calcium 8.8 Vancomycin Trough 12.2 05/15/19 05/14/19 05/14/19 07:52 22:06 17:36 WBC RBC Hgb Hct MCV MCH MCHC RDW Plt Count MPV Sodium Potassium Chloride Carbon Dioxide BUN Creatinine Estim Creat Clear Calc Estimated GFR Glucose POC Capillary Glucose 188 H 217 H 214 H Calcium Vancomycin Trough 05/14/19 12:25 WBC RBC Hgb Hct MCV MCH MCHC RDW Plt Count MPV Sodium Potassium Chloride Carbon Dioxide BUN Creatinine Estim Creat Clear Calc Estimated GFR Glucose POC Capillary Glucose 244 H Calcium Vancomycin Trough Discharge Plan Discharge Consulting providers: Loc Mireles ; Ronal Vyas Discharging Clinician: Tahir Rehman Patient Disposition: Home, Self-Care Activity: as tolerated Diet: diabetic Wound Care Instructions: incision open to air and other - see discharge instructions Discharge Instructions: Check sugars before meals and at bedtime and take results to appt with Dr. Mart. Call if sugars are over 400 or under 100. Cleanse wound daily and as needed with warm water and soap. Patient Instructions: How to Stop Smoking (DC), Antibiotic Form Stand Alone Forms: General Discharge Information Follow-up/Referrals: Fernando Mart MD [Primary Care Provider] - 1 W
[2019-05-15 13:25] LABS: Glucose Point of Care 181 (65-105)
== END 2019-05-15 13:45 | disposition home or self-care (01) | DRG 603 ==
LOC: ANHED 21:42 → ANH3MED 22:40
PROVIDERS: Admitting Provider Internal Medicine; Emergency Provider Emergency Medicine; PCP Family Medicine; Visit Provider Internal Medicine
DX: L03.116 Cellulitis of left lower limb (principal); E11.65 Type 2 diabetes mellitus with hyperglycemia; Z28.21 Immunization not carried out because of patient refusal; Z86.14 Personal history of Methicillin resistant Staphylococcus aureus infection; T38.3X6A Underdosing of insulin and oral hypoglycemic [antidiabetic] drugs, initial encounter; Z91.128 Patient's intentional underdosing of medication regimen for other reason; F41.8 Other specified anxiety disorders; E78.5 Hyperlipidemia, unspecified; I10 Essential (primary) hypertension; G43.909 Migraine, unspecified, not intractable, without status migrainosus; Z96.651 Presence of right artificial knee joint; I88.9 Nonspecific lymphadenitis, unspecified; I34.1 Nonrheumatic mitral (valve) prolapse; I88.8 Other nonspecific lymphadenitis
CPT/HCPCS: 10060; 36415; 71046; 76882; 80048; 80053; 80202; 81001; 82948; 83036; 83605; 83690; 84443; 84484; 85025; 85027; 85610; 85730; 86140; 87081; 87804; 96365; 96367; 96375; 99285; A9270; J0131; J0743; J1650; J1815; J2405; J3010; J3370; J7030; J7120

== ENCOUNTER 2019-06-02 08:21 | Outpatient (CLI) | payer OTHER, SELFPAY ==
[2019-06-02 08:50] LABS: Basophils Absolute Auto 0.1 K/mm3 (0.0-0.1); Basophils Percent Auto 1.6 % (0.2-1.2); Eosinophils Absolute Auto 0.2 K/mm3 (0-0.3); Hematocrit 41.8 % (42.0-52.0); Hemoglobin 13.7 g/dL (14.0-18.0); Immature Granulocyte Absolute 0.01 K/mm3 (0.00-0.031); Immature Granulocyte Percent A 0.2 % (0-0.5); Lymphocytes Absolute Auto 2.36 K/mm3 (0.9-3.2); Lymphocytes Percent Auto 43.1 % (18.3-44.2); Mean Corpuscular HGB Conc 32.8 g/dl (32-36); Mean Corpuscular Hemoglobin 28.6 pg (26-34); Mean Corpuscular Volume 87.3 fl (80-100); Mean Platelet Volume 9.4 fl (7.4-10.4); Monocytes Absolute Auto 0.4 K/mm3 (0.1-0.6); Monocytes Percent Auto 6.4 % (2.6-8.5); Neutrophils Absolute Auto 2.4 K/mm3 (1.3-6.7); Neutrophils Percent Auto 44.7 % (45.5-73.1); Platelet Count Result 206 k/mm3 (150-375); Red Blood Count 4.79 M/mm3 (4.6-6.20); Red Cell Distribution Width 13.5 % (11.5-14.5); White Blood Count 5.5 K/mm3 (4.5-10.0)
[2019-06-02 09:08] LABS: Alanine Aminotransferase 16 U/L (4-50); Alkaline Phosphatase 71 U/L (38-126); Aspartate Amino Transferase 18 U/L (17-59); Bilirubin,Total 0.2 mg/dL (0.2-1.3); Blood Urea Nitrogen 20 mg/dL (9-20); Calcium 9.2 mg/dL (8.4-10.2); Carbon Dioxide 23 mmol/L (22-30); Chloride 108 mmol/L (98-107); Cholesterol 228 mg/dL (0-200); Estimated Glomerular Filt Rate > 60; Glucose 127 mg/dL (75-110); HDL Direct 34 mg/dL; Potassium 4.2 mmol/L (3.4-5.0); Sodium 138 mmol/L (137-145); Triglycerides 188 mg/dL (<150); Uric Acid 4.3 mg/dL (3.5-8.5)
[2019-06-02 09:18] LABS: LDL Cholesterol Direct 155 mg/dL
[2019-06-02 09:35] LABS: Hemoglobin A1C 10.5 % (<5.7)
[2019-06-02 09:37] LABS: Prostate Specific Antigen 2.1 ng/mL (< OR = 4.0); Total Triiodothyronine (T3) 1.03 NG/ML (0.97-1.69)
[2019-06-02 09:42] LABS: Free T4 Free Thyroxine 0.84 ng/mL (0.78-2.19); Vitamin D 25 Hydroxy 25.1 ng/mL
[2019-06-02 11:44] LABS: Creatinine Urine 134.7 mg/dL
[2019-06-02 11:48] LABS: MALB Creatinine Ratio 10.7 mg/g (0-30); Microalbumin Urine Random 14.4 mg/L (0-16.7)
== END 2019-06-02 08:22 | disposition home or self-care (01) ==
PROVIDERS: PCP Family Medicine; Visit Provider Family Medicine
DX: E11.65 Type 2 diabetes mellitus with hyperglycemia (principal); E78.2 Mixed hyperlipidemia; I10 Essential (primary) hypertension; I34.1 Nonrheumatic mitral (valve) prolapse
CPT/HCPCS: 36415; 80053; 80061; 82043; 82306; 83036; 84153; 84439; 84443; 84480; 84550; 85025; G0103

== ENCOUNTER 2019-08-11 16:33 | Outpatient (CLI) | payer OTHER, SELFPAY ==
[2019-08-11 17:06] LABS: Cholesterol 145 mg/dL (0-200); HDL Direct 28 mg/dL; Triglycerides 195 mg/dL (<150)
[2019-08-11 17:17] LABS: LDL Cholesterol Direct 84 mg/dL
[2019-08-15 16:51] LABS: Testosterone Free 73.4 pg/mL (35.0-155.0); Testosterone Total 429 ng/dL (250-1100)
== END 2019-08-11 16:34 | disposition home or self-care (01) ==
LOC: ANHLAB 16:36
PROVIDERS: PCP Family Medicine; Visit Provider Family Medicine
DX: E11.65 Type 2 diabetes mellitus with hyperglycemia (principal); E78.2 Mixed hyperlipidemia; I10 Essential (primary) hypertension; I34.1 Nonrheumatic mitral (valve) prolapse; N52.9 Male erectile dysfunction, unspecified; Z13.220 Encounter for screening for lipoid disorders
CPT/HCPCS: 36415; 80061; 84402; 84403